=== PATIENT | female | born 2000 | race Caucasian/White ===

== ENCOUNTER 2019-06-06 21:12 | Emergency (ER) | payer OTHER ==
--- NOTE | 2019-06-06 21:22 | PDOC ---
Documentation entered by Gerda Mckee SCRIBE, acting as scribe for Maverick Cross MD. Maverick Cross MD: This documentation has been prepared by the Rylee ayala Nirvannie, SCRIBE, under my direction and personally reviewed by me in its entirety. I confirm that the documentation accurately reflects all work, treatment, procedures, and medical decision making performed by me. History of Present Illness - General Chief Complaint: Laceration Stated Complaint: DROPPED CERAMIC PLATE ON FOOT Time Seen by Provider: 06/06/19 21:14 History Source: Patient Exam Limitations: No Limitations - History of Present Illness Initial Comments: 06/06/19 21:20 HPI: The patient is a 19 year old female, with no significant past medical history, who presents to the emergency department with, a laceration to the foot. As per patient, a ceramic plate shattered on her foot subsequently lacerating her the insole of her right foot. She notes her tetanus is up to date. She was able to ambulate with a steady gait after sustaining the laceration. She denies any pain to the affected area. She denies any change in strength or sensation. She denies recent fevers, chills, headache or dizziness. She denies recent nausea, vomit, diarrhea or constipation. PAST MEDICAL HISTORY: no significant history PAST SURGICAL HISTORY: no significant history FAMILY HISTORY: no pertinent history SOCIAL HISTORY: Pt lives with family and is employed. MEDICATIONS: reviewed ALLERGIES: As per nursing notes. ROS: General: No fevers or chills, no weakness, no weight loss HEENT: No change in vision. No sore throat,. No ear pain CardioVascular: No chest pain or shortness of breath Respiratory:No cough, or wheezing. Gastrointestinal: no nausea, vomiting, diarrhea or constipation, No rectal bleeding Genitourinary: No dysuria, hematuria, or frequency Musculoskeletal: No joint or muscle pain or swelling Neurologic: No headache, vertigo, dizziness or loss of consciousness Psychiatric: nor depression Skin: +Laceration to the right foot. No rashes or easy bruising Endocrine: no increased thirst or abnormal weight change Allergic: no skin or latex allergy All other systems reviewed and normal Physical Exam: GENERAL: The patient is awake, alert, and fully oriented, in no acute distress. HEAD: Normal with no signs of trauma. EYES: Pupils equal, round and reactive to light, extraocular movements intact, sclera anicteric, conjunctiva clear. EXTREMITIES: +2cm laceration to the insole of the right foot. No tenderness. No bony tenderness. No active bleeding. No palpable foreign body. Normal range of motion, no edema. NEUROLOGICAL: Normal speech, normal gait. PSYCH: Normal mood, normal affect. SKIN: Warm, Dry, normal turgor, no rashes or lesions noted. Assessment and plan: This is a 19-year-old female who dropped a ceramic bowl on her foot causing a laceration to the insole of her foot. Patient is otherwise healthy her immunizations are up-to-date. On my exam there is no tenderness or sensation of a foreign body on palpation Procedure note laceration was cleaned and closed with Dermabond Patient discharged with Dermabond instructions. Past History - Past Medical History Allergies/Adverse Reactions: Allergies Allergy/AdvReac Type Severity Reaction Status Date / Time No Known Allergies Allergy Verified 06/06/19 21:17 Home Medications: Ambulatory Orders NK [No Known Home Medication] 06/06/19 *Physical Exam - Vital Signs Last Vital Signs Temp Pulse Resp BP Pulse Ox 99 F 104 H 16 152/80 99 06/06/19 21:18 06/06/19 21:18 06/06/19 21:18 06/06/19 21:18 06/06/19 21:18 Discharge - Discharge Information Problems reviewed: Yes Clinical Impression/Diagnosis: Foot laceration Qualifiers: Encounter type: initial encounter Laterality: right Qualified Code(s): S91.311A - Laceration without foreign body, right foot, initial encounter Condition: Stable Disposition: HOME - Admission No - Follow up/Referral - Patient Discharge Instructions Patient Printed Discharge Instructions: DI for Laceration Repair With Dermabond Additional Instructions: Tylenol or Motrin as needed for pain. Read over follow the Dermabond instructions. Keep it dry for 72 hours and do not use any petroleum-based products on the glue as it will cause the glue to come off early. Return to the emergency department immediately with ANY new, persistent or worsening symptoms. Continue any medications as previously prescribed by your physician. You should follow up with your primary doctor as soon as possible regarding today's emergency department visit. . Please make sure your doctor reviews the results of your emergency evaluation. Thank you for coming to the Emergency Department today for your care. It was a pleasure to see you today. Please note that your evaluation is INCOMPLETE until you follow-up with your doctor. - Post Discharge Activity
[2019-06-06 21:26] VITALS: BP 152/80; PULSE 104; TEMP 99; BMI 20.9
== END 2019-06-06 21:30 | disposition home or self-care (01) ==
LOC: FER 21:12
PROC: 0HQMXZZ Repair Right Foot Skin, External Approach (ICD-10-PCS; principal; 2019-06-06)
DX: S91.311A Laceration without foreign body, right foot, initial encounter (principal); W20.8XXA Other cause of strike by thrown, projected or falling object, initial encounter; Y93.89 Activity, other specified; Y92.89 Other specified places as the place of occurrence of the external cause
CPT/HCPCS: 99281-25